=== PATIENT | male | born 1985 | race Caucasian/White ===

== ENCOUNTER 2017-07-10 21:28 | Emergency (ER) | payer MEDICAID ==
[~2017-07-10] VITALS: Ht 170.2 cm; Wt 68.2 kg
[2017-07-10 21:30] VITALS: Ht 170.2 cm; Wt 68.2 kg
[2017-07-10] MEDS ORDERED: ONDANSETRON 4 MG INJ IV ONE (22:48)
--- NOTE | 2017-07-10 22:49 | ERD ---
ER Documentation Chief Complaint Date/Time DATE: 07/10/17 TIME: 22:41 Chief Complaint BIBA RA39,heroin overdose,rec'd Narcan intranasal X2,c/o left rib pain HPI Is a 32-year-old male was brought to the emergency room after an accidental overdose where he was unresponsive for a time 911 was called. Paramedics gave him 2 sprays intranasal Narcan. He is feeling much better now. Says he has no suicidal or homicidal thoughts whatsoever. ROS All systems reviewed and are negative except as per history of present illness. Medications Home Meds Reported Medications Lamotrigine* (Lamictal*) 100 Mg Tablet, 100 MG PO DAILY for SEIZURES, TAB 07/10/17 Topiramate* (Topamax*) 25 Mg Cap.sprink, 150 MG PO DAILY for BIPOLAR PROBLEMS, CAP 07/10/17 Allergies Allergies: Coded Allergies: No Known Allergy (Unverified , 07/10/17) PMhx/Soc History of Surgery: Yes (RIGHT FEMUR REPAIR) Anesthesia Reaction: No Hx Neurological Disorder: No Hx Respiratory Disorders: Yes (PLEURITIS) Hx Cardiac Disorders: No Hx Psychiatric Problems: Yes (BI POLAR) Hx Miscellaneous Medical Probl: No Hx Alcohol Use: No Hx Substance Use: Yes (HEROIN) Hx Tobacco Use: Yes Smoking Status: Current every day smoker Physical Exam Vitals Vital Signs Date Time Temp Pulse Resp B/P Pulse Ox O2 Delivery O2 Flow Rate FiO2 07/10/17 21:40 98.6 105 18 123/82 97 Room Air 07/10/17 21:30 98.6 119 18 124/68 99 Physical Exam Const: [] Mild distress, appears mildly uncomfortable Head: Atraumatic Eyes: Normal Conjunctiva ENT: Normal External Ears, Nose and Mouth. Neck: Full range of motion..~ No meningismus. Resp: Clear to auscultation bilaterally Cardio: Regular mild tachycardia, no murmurs Abd: Soft, non tender, non distended. Normal bowel sounds Skin: No petechiae or rashes Ext: No cyanosis, or edema Neur: Awake and alert and oriented 3, cranial nerves II through XII intact, no cerebellar deficits on finger-nose testing, normal gait Psych: Normal Mood and Affect Results 24 hrs Current Medications Medications (Trade) Dose Ordered Sig/Sylvia Route PRN Reason Start Time Stop Time Status Last Admin Dose Admin Ondansetron HCl 4 mg 4 mg ONCE ONCE IV 07/10/17 22:48 07/10/17 22:49 DC 07/10/17 23:10 Sodium Chloride (NS) 1,000 ml @ 1,000 mls/hr Q1H ONCE IV 07/10/17 23:00 07/10/17 23:59 DC 07/10/17 23:10 Procedures/MDM Accidental heroin overdose. I did spend time greater than 3 minutes in the patient's bedside counseling on the dangers of heroin and how to be a healthier citizen. Patient did leave to smoke a cigarette outside against the advice of the nurse. He returned he said he had some nausea felt slightly lightheaded. He was given a liter of normal saline and Zofran. He was observed on a director of dietary for time greater than the Narcan time of action of 60-90 minutes. He is feeling well and is being discharged in stable condition. Primary care follow-up in 2-3 days senior technical business analyst interpretation: Initial sinus tachycardia followed by normal sinus rhythm without arrhythmias. Departure Diagnosis: Primary Impression: Accidental overdose Additional Impression: Heroin overdose Condition: Stable Patient Instructions: Overdose, Accidental (Adult) Referrals: [facility] YOU HAVE RECEIVED A MEDICAL SCREENING EXAM AND THE RESULTS INDICATE THAT YOU DO NOT HAVE A CONDITION THAT REQUIRES URGENT TREATMENT IN THE EMERGENCY DEPARTMENT. FURTHER EVALUATION AND TREATMENT OF YOUR CONDITION CAN WAIT UNTIL YOU ARE SEEN IN YOUR DOCTORS OFFICE WITHIN THE NEXT 1-2 DAYS. IT IS YOUR RESPONSIBILITY TO MAKE AN APPOINTMENT FOR FOLOW-UP CARE. IF YOU HAVE A PRIMARY DOCTOR --you should call your primary doctor and schedule an appointment IF YOU DO NOT HAVE A PRIMARY DOCTOR YOU CAN CALL OUR PHYSICIAN REFERRAL HOTLINE AT IF YOU CAN NOT AFFORD TO SEE A PHYSICIAN YOU CAN CHOSE FROM THE FOLLOWING [facility] [id number] [facility] [address] [facility] [address] [facility]. [facility] [address] [facility]. [facility] [address] [facility]. [facility]. [address] Additional Instructions: Call your primary care doctor TOMORROW for an appointment during the next 2-3 days.See the doctor sooner or return here if your condition worsens before your appointment time. DERICK ALLEN DO Jul 10, 2017 22:49
[2017-07-10] MEDS ORDERED: TOPI25CA PO (22:51)
[2017-07-10] MEDS ORDERED: LAMO100T83 PO (22:51)
[2017-07-10] MEDS ORDERED: SOD CHLORIDE 0.9% 1,000 ML IV ONE (23:00)
[2017-07-11 00:34] VITALS: BP 132/84; PULSE 114; RESP 18; TEMP 98.6
== END 2017-07-11 00:34 | disposition home or self-care (01) ==
LOC: E/R 21:28
DX: T40.1X1A Poisoning by heroin, accidental (unintentional), initial encounter (principal); F17.210 Nicotine dependence, cigarettes, uncomplicated
CPT/HCPCS: 96374; J2405; J7030; Z7502